=== PATIENT | male | born 1990 | race American Indian/Alaskan Native ===

== ENCOUNTER 2020-09-21 04:03 | Emergency (ER) | payer OTHER ==
[2020-09-21] MEDS ORDERED: VALPROATE SODIUM 500 MG in SODIUM CHLORIDE 0.9% 100 ML IV ONE (04:15)
--- NOTE | 2020-09-21 04:17 | Emergency Department Report ---
ED General Adult HPI - General Chief complaint: Seizure Stated complaint: SEIZURES PUI?: No Time Seen by Provider: 09/21/20 04:07 Source: patient, EMS (Verbal report received from emergency medical services. EMS documentation not available at time of chart dictation ), RN notes reviewed Mode of arrival: Stretcher Limitations: No Limitations - History of Present Illness Initial comments: The patient was evaluated in the emergency department for symptoms described in the history of present illness. He/she was evaluated in the context of the global COVID-19 pandemic, which necessitated consideration that the patient might be at risk for infection with the virus that causes COVID-19. Institutional protocols and algorithms that pertain to the evaluation of patients at risk for COVID-19 are in a state of rapid change based on information released by regulatory bodies including the CDC and federal and state organizations. These policies and algorithms were followed during the patient's care in the emergency department. Please note that these policies, procedures and recommendations changed on a rapid basis. This is a pleasant and cooperative 30-year-old gentleman who is not known to myself previously. He is currently visiting from [place]. He has a history of seizures, and is supposed to be on Depakote, 500 mg. He has not taken his medication in around 2 weeks. Patient reports being in his usual state of health earlier on today, and states "I think I had a seizure." As per verbal report from EMS, patient was found on the floor, having a seizure. I terminated his seizure with Versed. The patient denies headache, neck pain, chest pain, abdominal pain, shortness of breath, urinary symptoms, loss of taste and smell. He feels like he is back to his baseline. The patient has no additional complaints at this time. His last seizure was "a few months ago." He is scheduled to return to [place] on Saturday, 2 to 3 days from now. He states a family member is going to drive him back to [place]. -: Sudden Consistency: now resolved Improves with: medication Worsens with: none Associated Symptoms: denies other symptoms - Related Data Previous Rx's Medication Instructions Recorded Last Taken Type Divalproex [DepaKOTE ] 500 mg PO TID #90 tab 09/21/20 Unknown Rx Allergies Allergy/AdvReac Type Severity Reaction Status Date / Time amoxicillin Allergy Hives Verified 09/21/20 04:20 Penicillins Allergy Hives Verified 09/21/20 04:20 phenytoin [From Dilantin] Allergy Hives Verified 09/21/20 04:20 ED Review of Systems ROS: Stated complaint: SEIZURES Other details as noted in HPI Comment: All other systems reviewed and negative ED Past Medical Hx - Medications Home Medications: Home Medications Medication Instructions Recorded Confirmed Last Taken Type Divalproex Dr [DepaKOTE DR] 500 mg PO TID #90 tab 09/21/20 Unknown Rx ED Physical Exam - General Limitations: No Limitations General appearance: alert, in no apparent distress - Head Head exam: Present: atraumatic, normocephalic - Eye Eye exam: Present: normal appearance, PERRL, EOMI, other (Visual acuity intact to finger counting, color perception, reading at a close distance). Absent: nystagmus - ENT ENT exam: Present: normal exam, normal orophraynx, mucous membranes moist, normal external ear exam - Neck Neck exam: Present: normal inspection, full ROM. Absent: tenderness, meningismus - Respiratory Respiratory exam: Present: normal lung sounds bilaterally. Absent: respiratory distress, wheezes, rales, rhonchi, stridor, decreased breath sounds - Cardiovascular Cardiovascular Exam: Present: regular rate, normal rhythm, normal heart sounds. Absent: bradycardia, tachycardia, irregular rhythm, systolic murmur, diastolic murmur, rubs, gallop - GI/Abdominal GI/Abdominal exam: Present: soft, normal bowel sounds. Absent: distended, tenderness, guarding, rebound, rigid, pulsatile mass - Rectal Rectal exam: Present: deferred - Extremities Exam Extremities exam: Present: normal inspection, full ROM, other (2+ pulses noted in the bilateral upper and lower extremities. There is no palpable cord. negative Homans sign. Muscular compartments are soft. The pelvis is stable.). Absent: pedal edema, calf tenderness - Back Exam Back exam: Present: normal inspection, full ROM. Absent: tenderness, CVA tenderness (R), CVA tenderness (L), paraspinal tenderness, vertebral tenderness - Neurological Exam Neurological exam: Present: alert, oriented X3, other (No facial droop. Tongue midline. Extraocular movements intact bilaterally. Facial sensation intact to light touch in V1, V2, V3 distribution bilaterally. 5 and a 5 strength in 4 extremities. Sensation intact to light touch in 4 extremities.). Absent: motor sensory deficit - Psychiatric Psychiatric exam: Present: normal affect, normal mood - Skin Skin exam: Present: warm, dry, intact, normal color. Absent: rash ED Course Vital Signs 09/21/20 09/21/20 04:14 04:15 Temperature 97.8 F Pulse Rate 65 67 Respiratory 18 18 Rate Blood Pressure 125/76 125/76 O2 Sat by Pulse 99 100 Oximetry - Reevaluation(s) Reevaluation #1: 09/21/20 04:36 Differential diagnosis, including but not limited to: Closed head injury, seizure, noncompliance Assessment and plan: 30-year-old gentleman, who is clinically sober, with a GCS of 15, patient is clinically sober at this time. The cervical spine is cleared through nexus and greek c spine rule, noncompliance with AED therapy, presenting with breakthrough seizure, now terminated with Versed in the field. As per verbal report from EMS, patient was on the floor, and appeared to have hit his head a few times. Patient does not have complete recollection of the event. Therefore, we will obtain noncontrast CT scan of brain. We will obtain EKG, and appropriate laboratory studies, and load patient with valproic acid. Patient counseled to not drive or operate motor vehicles for the next 6 months. He has articulated understanding. He requests a refill on his Depakote. Reassess after initial data points. Reevaluation #2: 09/21/20 05:32 Patient reevaluated multiple times. He is in no acute distress. He remains clinically sober. He has a GCS of 15. No additional convulsive activity noted. Laboratory studies unremarkable for acute pathology. CT scan of the brain negative for acute findings. Repeat neurologic examination unchanged. Patient states he can have a family member come by and pick him up. Discharge instructions were discussed and reviewed with the patient, who verbalized understanding. ED Medical Decision Making - Lab Data Result diagrams: 09/21/20 04:31 09/21/20 04:31 Vital Signs 09/21/20 09/21/20 04:14 04:15 Temperature 97.8 F Pulse Rate 65 67 Respiratory 18 18 Rate Blood Pressure 125/76 125/76 O2 Sat by Pulse 99 100 Oximetry Lab Results 09/21/20 09/21/20 09/21/20 Range/Units 04:31 04:31 04:31 Hgb (11.8-15.2) gm/dl Hct (35.5-45.6) % Plt Count (140-440) K/mm3 Sodium 140 (137-145) mmol/L Potassium 3.8 (3.6-5.0) mmol/L Chloride 104.7 (98-107) mmol/L Carbon Dioxide 27 (22-30) mmol/L Anion Gap 12 mmol/L BUN 20 (9-20) mg/dL Creatinine 1.1 (0.8-1.3) mg/dL Estimated GFR > 60 ml/min BUN/Creatinine Ratio 18 % Glucose 125 H (75-100) mg/dL Calcium 9.3 (8.4-10.2) mg/dL Magnesium 1.90 (1.7-2.3) mg/dL Total Creatine Kinase 239 H (55-170) units/L Salicylates < 0.3 L (2.8-20.0) mg/dL Acetaminophen 5.0 L (10.0-30.0) ug/mL Valproic Acid < 2.8 L (50-100) ug/mL Plasma/Serum Alcohol (0-0.07) % 09/21/20 09/21/20 Range/Units 04:31 04:31 Hgb 14.0 (11.8-15.2) gm/dl Hct 42.1 (35.5-45.6) % Plt Count 252 (140-440) K/mm3 Sodium (137-145) mmol/L Potassium (3.6-5.0) mmol/L Chloride (98-107) mmol/L Carbon Dioxide (22-30) mmol/L Anion Gap mmol/L BUN (9-20) mg/dL Creatinine (0.8-1.3) mg/dL Estimated GFR ml/min BUN/Creatinine Ratio % Glucose (75-100) mg/dL Calcium (8.4-10.2) mg/dL Magnesium (1.7-2.3) mg/dL Total Creatine Kinase (55-170) units/L Salicylates (2.8-20.0) mg/dL Acetaminophen (10.0-30.0) ug/mL Valproic Acid (50-100) ug/mL Plasma/Serum Alcohol < 0.01 (0-0.07) % - EKG Data -: EKG Interpreted by Md EKG shows normal: sinus rhythm Rate: normal - EKG Data When compared to previous EKG there are: previous EKG unavailable 09/21/20 04:52 EKG interpreted at 04: 49 Sinus rhythm, 62 bpm. Normal axis, normal intervals. High left ventricular voltage. Q waves noted in the inferior leads. Early repolarization. Not a STEMI. No prior for comparison. Normal P wave axis. - Radiology Data Radiology results: pending, report reviewed, image reviewed Study Comments CT HEAD WITHOUT CONTRAST INDICATION / CLINICAL INFORMATION: Seizure / Closed Head Injury. TECHNIQUE: All CT scans at this location are performed using CT dose reduction for ALARA by means of automated exposure control. COMPARISON: None available. FINDINGS: HEMORRHAGE: None. EXTRA-AXIAL SPACES: Normal in size and morphology for the patient's age. VENTRICULAR SYSTEM: Normal in size and morphology for the patient's age. CEREBRAL PARENCHYMA: No significant abnormality. No acute territorial infarct. MIDLINE SHIFT / HERNIATION: None. CEREBELLUM / BRAINSTEM: No significant abnormality. ORBITS: Normal as visualized. SOFT TISSUES: No significant abnormality. SKULL: No significant abnormality. PARANASAL SINUSES / MASTOID AIR CELLS: Normal as visualized. ADDITIONAL FINDINGS: None. IMPRESSION: No acute intracranial abnormality. Signer Name: Anupam Zhang MD Signed: 09/21/2020 3:50 AM Workstation Name: [id number] Critical care attestation.: If time is entered above; I have spent that time in minutes in the direct care of this critically ill patient, excluding procedure time. ED Disposition Clinical Impression: Seizure, Noncompliance Closed head injury Qualifiers: Encounter type: initial encounter Qualified Code(s): S09.90XA - Unspecified injury of head, initial encounter Disposition: DC-01 TO HOME OR SELFCARE Is pt being admited?: No Does the pt Need Aspirin: No Condition: Good Instructions: Epilepsy, [id number] Additional Instructions: Please take the Depakote/valproic acid prescription as directed. Avoid consumption of alcohol. Do not drive or operate motor vehicles for the next 6 months. Follow-up with a primary care doctor or neurologist within the next 5 to 7 days. Noncompliance with seizure medication may cause breakthrough seizure, which may lead to , disability, paralysis, loss of quality of life. If patient develops pain, he may take [id number] Tylenol and/or acetaminophen as needed for pain. He may also take ibuprofen [id number] as needed for pain. Please return to the emergency room right away with new pain, worsened pain, migration of pain, projectile vomiting, change in mental status, confusion, inability to tolerate liquid feeds, new, worsened or different symptoms not present on the initial emergency room evaluation. If the patient elects to remain here in [place] for a prolonged period of time, we have listed a number of local primary care doctors and/or neurologist that he may follow-up with. Prescriptions: Divalproex [DepaKOCRESCENCIO SORIA] 500 mg PO TID #90 tab Referrals: MIGUEL CHE MD [Referring] - 3-5 Days (Neurology) DIANNE YORK MD [Staff Physician] - 3-5 Days (Primary care)
[2020-09-21 04:47] LABS: Hematocrit 42.1 % (35.5-45.6)
--- NOTE | 2020-09-21 04:54 | Cat Scan Report ---
CT HEAD WITHOUT CONTRAST INDICATION / CLINICAL INFORMATION: Seizure / Closed Head Injury. TECHNIQUE: All CT scans at this location are performed using CT dose reduction for ALARA by means of automated exposure control. COMPARISON: None available. FINDINGS: HEMORRHAGE: None. EXTRA-AXIAL SPACES: Normal in size and morphology for the patient's age. VENTRICULAR SYSTEM: Normal in size and morphology for the patient's age. CEREBRAL PARENCHYMA: No significant abnormality. No acute territorial infarct. MIDLINE SHIFT / HERNIATION: None. CEREBELLUM / BRAINSTEM: No significant abnormality. ORBITS: Normal as visualized. SOFT TISSUES: No significant abnormality. SKULL: No significant abnormality. PARANASAL SINUSES / MASTOID AIR CELLS: Normal as visualized. ADDITIONAL FINDINGS: None. IMPRESSION: No acute intracranial abnormality. Signer Name: Anupam Zhang MD Signed: 09/21/2020 4:50 AM Workstation Name: [id number]
[2020-09-21 05:11] LABS: BUN/Creatinine Ratio 18; Blood Urea Nitrogen 20 mg/dL (9-20); Calcium 9.3 mg/dL (8.4-10.2); Hemolysis Index 10
[2020-09-21 06:24] VITALS: BP 119/67
--- NOTE | 2020-09-22 10:46 | Electrocardiograph Report ---
[facility] Test Date: 2020-09-21 Test Time: 04:49:49 Pat Name: JIGNESH CHAN Department: Room: Gender: M Injection Specialist: : 1990 Requested By: SONA BELLO Order Number: [id number] Reading MD: Christian Trejo Measurements Intervals Orient Rate: 62 P: 75 PA: 171 QRS: 70 QRSD: 81 T: 52 QT: 400 QTc: 407 Interpretive Statements Sinus rhythm Early repolarization ST changes No previous ECG available for comparison Electronically Signed On 09-22-2020 10:46:10 EDT by Christian Trejo
== END 2020-09-21 06:17 | disposition home or self-care (01) ==
LOC: ED 04:03
DX: S09.90XA Unspecified injury of head, initial encounter (principal); G40.909 Epilepsy, unspecified, not intractable, without status epilepticus; Z79.899 Other long term (current) drug therapy; Z88.0 Allergy status to penicillin; Z88.8 Allergy status to other drugs, medicaments and biological substances; Z91.19 Patient's noncompliance with other medical treatment and regimen; X58.XXXA Exposure to other specified factors, initial encounter; Y93.89 Activity, other specified; Y92.89 Other specified places as the place of occurrence of the external cause; Y99.8 Other external cause status
CPT/HCPCS: 36415; 70450; 80048; 80164; 80320; 82550; 83735; 85014; 85018; 85049; 93005; 96365; G0480